=== PATIENT | male | born 1970 | race Caucasian/White ===

== ENCOUNTER → 2021-04-13 | Outpatient (CLI) | payer OTHER ==
[~2021-04-13] MED LIST: CASIRIVIMAB/IMDEVIMAB 600/600mg in IV NS TV=50 ML IV ONE
[2021-04-13 11:46] VITALS: BP 107/67
--- NOTE | 2021-04-13 13:04 | NUR ---
OUTPATIENT INFUSION Pt ambulated to unit for infusion. IV access established and vitals taken. Infusion information given to pt prior to infusion. Infusion completed. IV removed. Pt ambulated off unit with VSS and GCS 15. Home care for COVID symptoms given. Pt verbalized understanding. CC, RN
== END | disposition home or self-care (01) ==
LOC: OPINF 11:20
PROVIDERS: ATTEND Family Medicine
DX: U07.1 COVID-19 (principal)
CPT/HCPCS: M0243; Q0243